=== PATIENT | female | born 1945 | race Caucasian/White ===

== ENCOUNTER 2019-06-01 12:00 | Emergency (ER) | payer OTHER ==
[~2019-06-01] VITALS: Ht 157.5 cm; Wt 47.6 kg
[2019-06-01] MEDS ORDERED: NORVASC5 MG (12:29)
== END 2019-06-01 14:44 | disposition home or self-care (01) ==
LOC: ER 12:00
DX: S61.422A Laceration with foreign body of left hand, initial encounter (principal); W18.09XA Striking against other object with subsequent fall, initial encounter; Y93.89 Activity, other specified; Y92.018 Other place in single-family (private) house as the place of occurrence of the external cause; Y99.8 Other external cause status

== ENCOUNTER 2019-06-08 15:49 | Emergency (ER) | payer OTHER ==
[~2019-06-08] VITALS: Ht 157.5 cm; Wt 47.6 kg
[~2019-06-08 15:49] MED LIST: NORVASC5 MG
== END 2019-06-08 18:51 | disposition home or self-care (01) ==
LOC: ER 15:49
DX: Z48.02 Encounter for removal of sutures (principal)

== ENCOUNTER → 2025-04-09 | Outpatient (CLI) | payer OTHER | END | disposition home or self-care (01) | LOC: RAD 12:57 | PROVIDERS: ATTEND Physical Medicine & Rehabilitation | DX: M54.59 Other low back pain (principal); M54.6 Pain in thoracic spine ==